=== PATIENT | female | born 1970 | race Caucasian/White ===

== ENCOUNTER → 2019-12-02 15:12 | Outpatient (BNVA) | payer OTHER, SELFPAY | PROVIDERS: Visit Provider Nurse Practitioner Family | DX: I10 Essential (primary) hypertension (principal); F41.9 Anxiety disorder, unspecified; G25.81 Restless legs syndrome; M54.2 Cervicalgia; D64.9 Anemia, unspecified | CPT/HCPCS: 80053; 80061; 83540; 84443; 85025 ==

== ENCOUNTER 2020-10-09 00:12 | Emergency (ER) | payer OTHER, SELFPAY ==
[2020-10-09 00:14] VITALS: BP 143/79; PULSE 105; RESP 16; TEMP 37; O2SAT 98; BMI 26.6
--- NOTE | 2020-10-09 00:20 | W.ED.GENADLT ---
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 This just happened right before arrival. She denies any pain. Denies any other injuries. Associated symptoms: Deny chest pain, dyspnea, headache(s), nausea, rash or vomiting Review of Systems Const: Denies: fever(s), chills, body aches or change in appetite Eyes: Denies: blurry vision or eye discomfort ENMT: Denies: throat pain or dental pain Card: Denies: chest pain Resp: Denies: dyspnea GI: Denies: abdominal pain, nausea, vomiting or diarrhea : Denies: dysuria Musc: Denies: neck pain or back pain Skin/Breast: Denies: rash Neuro: Denies: headache(s) Psych: Denies: depression Isauro/Lymph: Denies: easy bruising All/Imm: Denies: urticaria PFSH ED PFSH: Medical History Anemia Anxiety and depression Chronic neck pain Essential hypertension Hypokalemia Insomnia Restless leg syndrome Surgical History History of bilateral salpingectomy History of endometrial ablation History of oral surgery Raymond teeth extraction Family History Father Cancer Colon Cancer Diabetes Hypertension Hyperlipidemia Mother Cancer Basal cell cancer Sister Hyperlipidemia Brother Hyperlipidemia Social History Smoking and tobacco status: never smoked Alcohol intake: never Lives independently: Yes Housing: House Marital status: Legally History of recent travel: No Current gender identity: Female Physical Exam Const: COMMON NORMALS: no acute distress, patient oriented x3 and healthy appearing HENMT: COMMON NORMALS: normocephalic and atraumatic HEAD & SCALP: normocephalic and atraumatic Eye: COMMON NORMALS: EOMs intact bilaterally Neck/C-Spine: COMMON NORMALS: full ROM and supple Chest: COMMONS NORMALS: normal inspection of the chest Resp: COMMON NORMALS: normal respiratory effort, No retractions, No use of accessory muscles and clear to auscultation bilaterally AUSCULTATION: clear to auscultation bilaterally Cardio: COMMON NORMALS: regular rate, regular rhythm and No murmurs present (Cardio) RATE: regular rate RHYTHM: regular rhythm Extremity: COMMON NORMALS: normal to inspection and full ROM Neuro: COMMON NORMALS: patient oriented x3, moves all extremities and no focal motor deficits Psych: COMMON NORMALS: mental status grossly normal, Normal thought process present and cooperative THOUGHT PROCESS: Normal thought process present Skin: COMMON NORMALS: no rashes or lesions noted and no wounds NARRATIVE SKIN EXAM: needlestick to left thumb GENERAL SKIN EXAM: no rashes or lesions noted MDM - General Adult MDM Narrative: Medical decision making narrative: Chad presents here with a needlestick injury. We will get him a blood draw and patient is stable for discharge. Discharge Plan Discharge Patient Disposition: Home Clinical Impression: Needle stick injury Condition: Stable Prescriptions: No Action potassium chloride 10 mEq tablet,ER particles/crystals 10 meq PO DAILY Qty: 30 RF: 0 zonisamide 100 mg capsule 300 mg PO .hs 90 Days Qty: 270 RF: 1 hydrochlorothiazide 12.5 mg tablet 12.5 mg PO DAILY Qty: 90 RF: 1 ferrous sulfate 220 mg (44 mg iron)/5 mL elixir 110 - 220 mg PO DAILY Qty: 473 RF: 5 clonazepam 0.5 mg tablet 0.5 mg PO DAILY PRN (Reason: anxiety) Qty: 90 RF: 1 Hold Instructions: Doctor's Order quetiapine 200 mg tablet 200 mg PO .hs 90 Days Qty: 90 RF: 1 Hold Instructions: Medication Not Effective zaleplon 10 mg capsule 10 mg PO .at bedtime Qty: 30 RF: 2 trazodone 300 mg tablet 300 mg PO .at bedtime Qty: 30 RF: 2 ropinirole 5 mg tablet 5 mg PO .hs 90 Days Qty: 90 RF: 1 Discharge Orders: Discharge ED (Routine); Ordered 10/09/20 Ordered By: Marcus Quintana Discharge Diet: Advance as tolerated Discharge Activity: Resume usual activity Patient Instructions: Needle Stick Injuries (ED) Coding Level of Care Code 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
[2020-10-09 01:29] LABS: HIV 1 & 2 Antibody Non-Reactive (Non-Reactiv); HIV 1 & 2 Antigen Non-Reactive (Non-Reactiv)
[2020-10-09 01:34] LABS: Hepatitis A Antibody IgM Non-Reactive (Nonreactive); Hepatitis B Core AB, Total Non-Reactive (Nonreactive); Hepatitis B Surface AB 3.5 (0-8.5); Hepatitis B Surface Antigen Non-Reactive (Nonreactive); Hepatitis C Virus Antibody Non-Reactive (Nonreactive)
== END 2020-10-09 00:44 | disposition home or self-care (01) ==
PROVIDERS: Emergency Provider Emergency Medicine
DX: S61.032A Puncture wound without foreign body of left thumb without damage to nail, initial encounter (principal); W46.1XXA Contact with contaminated hypodermic needle, initial encounter; Y92.238 Other place in hospital as the place of occurrence of the external cause; Y99.0 Civilian activity done for income or pay; I10 Essential (primary) hypertension
CPT/HCPCS: 12345; 86705; 86706; 86709; 86803; 87340; 87806; 99281; 99282